=== PATIENT | male | born 1990 | race Caucasian/White ===

== ENCOUNTER 2020-10-20 00:06 | Emergency (ER) | payer SELFPAY ==
--- NOTE | ~2020-10-20 | XR_ITS ---
EXAMINATION: XR CHEST, 2 VIEWS CLINICAL INFORMATION: URI AND PRODUCTIVE COUGH COMPARISON: None. TECHNIQUE: PA and lateral views of the chest were obtained. FINDINGS: Lungs are clear. No consolidation, pneumothorax, or pleural effusion. Cardiac and mediastinal contours are normal. Pulmonary vasculature is unremarkable. Trachea is midline. Osseous structures are unremarkable. XR/XR chest 2V IMPRESSION: Normal chest radiographs.
[2020-10-20 00:54] VITALS: BP 128/73; PULSE 76; RESP 18; TEMP 36.7; O2SAT 97; BMI 20.5
--- NOTE | 2020-10-20 01:24 | PC.NURSE ---
PT TO ROOM WITH C/O CONGESTION AND RUNNY NOSE. PT LOOKING FOR WORK EXCUSE NOTE. PT AWAITING FOR MD TO EVAL.
--- NOTE | 2020-10-20 01:50 | ED.URI ---
HPI - URI/Sore Throat General Chief Complaint: Upper Respiratory Symptoms Stated Complaint: cold symptoms Time Seen by Provider: 10/20/20 01:48 Source: patient Mode of arrival: ambulatory Limitations: no limitations History of Present Illness HPI Narrative: patient history of mild asthma complaining of cough mucopurulent nasal congestion body aches for last 3 days has not received a COVID vaccine no other family member sick sore throat is getting better now and patient started getting better Related Data Previous Rx's Medication Instructions Recorded azithromycin [Zithromax] 250 mg PO DAILY #4 tab 10/20/20 prednisone 40 mg PO DAILY #10 tab 10/20/20 Allergies Allergy/AdvReac Type Severity Reaction Status Date / Time No Known Allergies Allergy Verified 10/20/20 00:53 Review of Systems Review of Systems: Yes all other systems are reviewed and are negative [facility] Past Medical History Medical History Asthma Social History Social History Advance Directives: No Advance Directives Information Provided: No Physical Exam Vital Signs: Vital Signs: Last Vital Signs Temp 98.1 F 10/20/20 00:54 Pulse 76 10/20/20 00:54 Resp 18 10/20/20 00:54 BP 128/73 10/20/20 00:54 Pulse Ox 97 10/20/20 00:54 Body Mass Index 20.5 Appearance: Alert. Oriented X3. No acute distress. Eyes: PERRLA, No Nystagmus ENT: Pharynx normal. Oral Mucosa moist Neck: Normal inspection. Neck supple. CVS: Normal heart rate and rhythm. Pulses normal. Respiratory: No respiratory distress. Equal air entry bilateral, mild rhonchi bilaterally no rales no wheezing Abdomen: Soft and nontender. Skin: Skin warm and dry. Normal skin color. Normal skin turgor. Extremities: No lower extremity edema. No calf tenderness Neuro: Oriented X 3. MDM - URI/Sore Throat MDM Narrative Medical decision making narrative: patient chest x-ray negative , COVID-19 negativesymptoms from bronchitis will discharge patient home Lab Data Attestation: I reviewed the patient's lab results. Labs: Lab Results 10/20/20 Range/Units 01:10 Coronavirus (PCR) NEGATIVE (Negative) Influenza Type A (PCR) NEGATIVE (Negative) Influenza Type B (PCR) NEGATIVE (Negative) RSV RNA Qual (PCR) NEGATIVE (Negative) Discharge Plan Discharge Clinical Impression: Bronchitis Patient Disposition: Home, Self-Care Instructions: Acute Bronchitis (ED) Additional Instructions: take inhaler antibiotic and prednisone as advised. Stop smoking Prescriptions: New azithromycin [Zithromax] 250 mg tablet 250 mg PO DAILY Qty: 4 RF: 0 prednisone 20 mg tablet 40 mg PO DAILY Qty: 10 RF: 0 Stand Alone Forms: Work/School Release
[2020-10-20 01:53] LABS: Influenza A PCR NEGATIVE (Negative); Influenza B PCR NEGATIVE (Negative); Resp Syncy Virus RNA Qual PCR NEGATIVE (Negative); SARS COV2 PCR INHOUSE NEGATIVE (Negative)
[2020-10-20] MEDS: Albuterol Sulfate 90 MCG 8 GM INHALER 4 PUFF INHALE (02:27)
[2020-10-20] MEDS: Azithromycin 500 MG TABLET PO (02:28)
[2020-10-20] MEDS: predniSONE 20 MG TABLET 40 MG PO (02:28)
== END 2020-10-20 02:45 | disposition home or self-care (01) ==
PROVIDERS: Emergency Provider Internal Medicine
DX: J40 Bronchitis, not specified as acute or chronic (principal); Z20.822 Contact with and (suspected) exposure to COVID-19; R09.81 Nasal congestion
CPT/HCPCS: 0241U; 36415; 71046; 99283; 99284

== ENCOUNTER 2020-11-22 16:20 | Emergency (ER) | payer SELFPAY ==
[2020-11-22 17:37] VITALS: BP 123/60; PULSE 87; RESP 16; TEMP 37.2; O2SAT 97; BMI 19.8
--- NOTE | 2020-11-22 18:03 | ED.GENADULT ---
HPI - General Adult General Chief complaint: General Medical Stated complaint: flu like Time Seen by Provider: 11/22/20 17:38 Source: patient Mode of arrival: ambulatory Limitations: no limitations History of Present Illness HPI narrative: 30 y/o male presenting with sore throat, headaches and body aches for the last 3 days. He has had decreased PO intake and fatigue. He has been sleeping more than usual. He noticed his lymph nodes in his neck are enlarged today. He feels like he has a fever but did not take his temperature at home. He has no SOB, cough, chest pain, abdominal pain, N/V/D. No known sick contacts. MD complaint: sore throat & body aches Onset (ago): day(s) (3) Location: mouth, neck and back Radiation: non-radiation Severity: moderate Quality: aching Pain Consistency: intermittent Relieving factors: medication Exacerbating factors: none Associated symptoms: fever/chills, headaches, loss of appetite and malaise Treatments prior to arrival: none Related Data Previous Rx's Medication Instructions Recorded azithromycin 250 mg tablet 250 mg PO DAILY #4 tab 10/20/20 (Zithromax) prednisone 20 mg tablet 40 mg PO DAILY #10 tab 10/20/20 amoxicillin 500 mg tablet 500 mg PO BID #20 tab 11/22/20 ibuprofen 600 mg tablet 600 mg PO Q8H PRN #14 tab 11/22/20 Allergies Allergy/AdvReac Type Severity Reaction Status Date / Time No Known Allergies Allergy Verified 10/20/20 00:53 Review of Systems Constitutional: Constitutional: Denies chills, Reports fever(s) (subjective) and Reports headache(s) Eyes: Eyes: Denies irritation and Denies itchy eyes ENT: Reports headache(s), Reports nasal congestion, Reports neck pain and Reports sore throat Cardiovascular: Cardiovascular: Denies chest pain, Denies rapid heart rate and Denies lightheadedness Respiratory: Respiratory: Denies cough and Denies wheezing Gastrointestinal: Gastrointestinal: Denies abdominal pain, Denies diarrhea, Denies nausea and Denies vomiting Musculoskeletal: Musculoskeletal: Reports back pain, Reports myalgias and Reports neck pain Neurologic: Reports headache(s) Allergic/Immunologic: Allergic/Immunologic: Denies itchy eyes and Denies wheezing PMFSH Past Medical History Medical History Asthma Social History Social History Advance Directives: No Advance Directives Information Provided: Yes Physical Exam Vital Signs: Vital Signs: Last Vital Signs Temp 98.9 F 11/22/20 17:37 Pulse 87 11/22/20 17:37 Resp 16 11/22/20 17:37 BP 123/60 11/22/20 17:37 Pulse Ox 97 11/22/20 17:37 Body Mass Index 19.8 Appearance: Alert. Oriented X3. No acute distress. Eyes: Pupils equal, round and reactive to light. ENT: Moderate swelling of bilateral tonsils with exudates. uvula midline, handling secretions normally. moist mucus membranes. small submandibular lymphadenopathy. Neck: Normal inspection. Neck supple. CVS: Normal heart rate and rhythm. Pulses normal. Respiratory: No respiratory distress. Breath sounds normal. Skin: Skin warm and dry. Normal skin color. Normal skin turgor. No rashes. Extremities: No lower extremity edema. Neuro: Oriented X 3. Non-focal Course Course Course Narrative: 30 y/o male presenting with sore throat, body aches and subjective fever. Exam is consistent with Strep pharyngitis. No evidence of abscess. Given his other symptoms will also check for COVID. He is nontoxic appearing, afebrile and is in no distress. Reevaluation(s) Reevaluation #1: Strep positive. COVID pending will call with results. Stable for d/c home with Rx for amoxicillin. Medical Decision Making Lab Data Labs: Lab Results 11/22/20 Range/Units 17:47 S. pyogenes GrpA JIGNESH Positive A (Negative) Critical Care Time Critical Care Time Critical Care Time: No Discharge Plan Discharge Clinical Impression: Strep pharyngitis Patient Disposition: Home, Self-Care Instructions: Strep Throat (ED) Additional Instructions: Take the prescribed antibiotic for Strep throat. Use warm salt water gargles several times per day to help with sore throat. Recommend over the counter Cepacol lozenges or Chloraseptic spray to help with the pain. Take Motrin and/or Tylenol as needed for pain and fevers. Follow up with your doctor as needed. If you develop new or worsening symptoms call 911 or come back to the ER for further evaluation. Prescriptions: New amoxicillin 500 mg tablet 500 mg PO BID Qty: 20 RF: 0 ibuprofen 600 mg tablet 600 mg PO Q8H PRN (Reason: fever or pain) Qty: 14 RF: 0 No Action azithromycin [Zithromax] 250 mg tablet 250 mg PO DAILY Qty: 4 RF: 0 prednisone 20 mg tablet 40 mg PO DAILY Qty: 10 RF: 0 Stand Alone Forms: Work/School Release
[2020-11-22 18:04] LABS: Strep A Nucleic Acid Positive (Negative)
[2020-11-22 18:36] LABS: Influenza A PCR NEGATIVE (Negative); Influenza B PCR NEGATIVE (Negative); Resp Syncy Virus RNA Qual PCR NEGATIVE (Negative); SARS COV2 PCR INHOUSE NEGATIVE (Negative)
== END 2020-11-22 18:31 | disposition home or self-care (01) ==
PROVIDERS: Physician Assistant; Emergency Provider Emergency Medicine
DX: J02.0 Streptococcal pharyngitis (principal); R50.9 Fever, unspecified; M79.10 Myalgia, unspecified site; Z79.899 Other long term (current) drug therapy; Z20.822 Contact with and (suspected) exposure to COVID-19
CPT/HCPCS: 0241U; 36415; 87651; 99283

== ENCOUNTER 2020-12-31 12:53 | Emergency (ER) | payer SELFPAY ==
[2020-12-31 13:52] VITALS: BP 106/60; PULSE 76; RESP 16; TEMP 36.6; O2SAT 98; BMI 21.2
--- NOTE | 2020-12-31 13:53 | ED.HEATRA ---
HPI - Head Injury General Chief complaint: Wound/Laceration <MAGDY Herzog - Last Filed: 12/31/20 13:54> Stated complaint: FOREHEAD LAC <MAGDY Herzog - Last Filed: 12/31/20 13:54> Time Seen by Provider: 12/31/20 13:52 <MAGDY Herzog - Last Filed: 12/31/20 13:54> Source: patient <MAGDY Mitchell - Last Filed: 12/31/20 18:12> Mode of arrival: ambulatory <MAGDY Mitchell - Last Filed: 12/31/20 18:12> Limitations: no limitations <MAGDY Mitchell - Last Filed: 12/31/20 18:12> Related Data Home medications: Previous Rx's Medication Instructions Recorded azithromycin 250 mg tablet 250 mg PO DAILY #4 tab 10/20/20 (Zithromax) prednisone 20 mg tablet 40 mg PO DAILY #10 tab 10/20/20 amoxicillin 500 mg tablet 500 mg PO BID #20 tab 11/22/20 ibuprofen 600 mg tablet 600 mg PO Q8H PRN #14 tab 11/22/20 <MAGDY Herzog - Last Filed: 12/31/20 13:54> Allergies/Adverse reactions: Allergies Allergy/AdvReac Type Severity Reaction Status Date / Time No Known Allergies Allergy Verified 10/20/20 00:53 <MAGDY Herzog - Last Filed: 12/31/20 13:54> [facility] Past Medical History Medical History: Medical History Asthma <MAGDY Herzog - Last Filed: 12/31/20 13:54> Social History Social History: Social History Advance Directives: No Advance Directives Information Provided: Yes <MAGDY Herzog - Last Filed: 12/31/20 13:54> Physical Exam Vital Signs: Vital Signs: Last Vital Signs Temp 98 F 12/31/20 13:52 Pulse 76 12/31/20 13:52 Resp 16 12/31/20 13:52 BP 106/60 12/31/20 13:52 Pulse Ox 98 12/31/20 13:52 Body Mass Index 21.2 <MAGDY Herzog Last Filed: 12/31/20 13:54> Vital Signs: Last Vital Signs Temp 98 F 12/31/20 13:52 Pulse 76 12/31/20 13:52 Resp 16 12/31/20 13:52 BP 106/60 12/31/20 13:52 Pulse Ox 98 12/31/20 13:52 Body Mass Index 21.2 <MAGDY Mitchell - Last Filed: 12/31/20 18:12> Course Course Course Narrative: 13:55pm - 30-year-old male presenting to the ED with complaints of a laceration to his forehead after he hit his head on the steps while he was at home. Denies loss of consciousness. Although reports that he feels off since the incident. He reports he is not up-to-date on tetanus. On exam patient is alert and oriented x3. Not in any acute distress. He has a 3 cm intermediate laceration to his forehead that is linear in aspect. No foreign bodies noted. No active bleeding. Therefore at this time patient will be sent back to the waiting room to be evaluated emergency Minor Care and a CT scan of brain ordered at this time. <MAGDY Herzog Last Filed: 12/31/20 13:54> Discharge Plan Discharge Clinical Impression: Laceration <MAGDY Herzog Last Filed: 12/31/20 13:54> Patient Disposition: Home, Self-Care <MAGDY Herzog Last Filed: 12/31/20 13:54> Instructions: Head Laceration (ED) <MAGDY Herzog Last Filed: 12/31/20 13:54> Additional Instructions: Please return in 5 days which is January 05 to get the 5 sutures removed for your forehead. Leave the dressing in place until tomorrow, take, washed with soap and water and pat dry, apply thin layer bacitracin, do this again for the next 3-4 days. If redness swelling or warmth appears, please return to be seen as these are signs of infection. You do have some bleeding under the skin, keep the pressure dressing we placed on your head until tomorrow morning. <MAGDY Herzog Last Filed: 12/31/20 13:54> Prescriptions: No Action amoxicillin 500 mg tablet 500 mg PO BID Qty: 20 RF: 0 ibuprofen 600 mg tablet 600 mg PO Q8H PRN (Reason: fever or pain) Qty: 14 RF: 0 azithromycin [Zithromax] 250 mg tablet 250 mg PO DAILY Qty: 4 RF: 0 prednisone 20 mg tablet 40 mg PO DAILY Qty: 10 RF: 0 <MAGDY Herzog - Last Filed: 12/31/20 13:54> Stand Alone Forms: Work/School Release <MAGDY Herzog - Last Filed: 12/31/20 13:54> Interventions: ED Discharge Assessment Last Done: 12/31/20 16:41 <MAGDY Herzog - Last Filed: 12/31/20 13:54> Discharge Date/Time: 12/31/20 16:42 <MAGDY Herzog - Last Filed: 12/31/20 13:54>
--- NOTE | 2020-12-31 15:16 | PC.NURSE ---
pt refusing ct scan.
[2020-12-31] MEDS: Diphth,Pertus(ACell),Tet Adult 0.5 ML SYRINGE IM (15:49)
[2020-12-31] MEDS: Lidocaine HCl 1 % MPF 5 ML VIAL SUBCUT (15:49)
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
== END 2020-12-31 16:42 | disposition home or self-care (01) ==
PROVIDERS: Emergency Provider Emergency Medicine
DX: S01.81XA Laceration without foreign body of other part of head, initial encounter (principal); G44.309 Post-traumatic headache, unspecified, not intractable; Y04.8XXA Assault by other bodily force, initial encounter; Y93.9 Activity, unspecified; Y92.9 Unspecified place or not applicable; Y99.9 Unspecified external cause status; Z79.899 Other long term (current) drug therapy
CPT/HCPCS: 12011; 90471; 90715; 99283; 99284

== ENCOUNTER 2021-01-10 12:51 | Emergency (ER) | payer SELFPAY ==
[2021-01-10 13:42] VITALS: BP 110/58; PULSE 78; RESP 18; TEMP 36.1; O2SAT 98; BMI 19.8
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
[2021-01-10] MEDS: cephALEXin 500 MG CAPSULE PO (17:03)
== END 2021-01-10 17:07 | disposition home or self-care (01) ==
PROVIDERS: Emergency Provider Emergency Medicine
DX: L03.113 Cellulitis of right upper limb (principal); M79.601 Pain in right arm; Z79.899 Other long term (current) drug therapy
CPT/HCPCS: 99282; 99283